=== PATIENT | female | born 1975 | race Caucasian/White ===

== ENCOUNTER → 2019-05-25 14:01 | Outpatient (CLI) | payer OTHER, SELFPAY ==
--- NOTE | 2019-05-25 | DI.US.S_ITS ---
PROCEDURE: US PELVIC COMPLETE INDICATIONS: RIGHT LOWER QUADRANT PAIN TECHNIQUE: Real-time scanning was performed of the pelvic organs, with image documentation. Additional endovaginal scanning was not performed at the patient's request. COMPARISON: None. FINDINGS: Transabdominal scanning: Limited scanning through the kidneys shows no hydronephrosis. No pathologic free abdominal or pelvic fluid. Endovaginal scanning: Uterus: Uterus is normal in size at 5.5 x 3.0 x 4.0 cm. The endometrium measures 3.5 mm in combined thickness. Ovaries: Normal ovaries bilaterally measuring 2.4 x 1.2 x 1.2 cm on the right and 2.5 x 1.4 x 1.5 cm in length. The appendix is not definitively identified. IMPRESSION: 1. No source for right lower quadrant pain identified and the appendix is not visualized and cannot be evaluated. If indicated, CT could be performed. Dictated by: Fan ROBLES Interpreted: Obde Julien MD on 05/25/2019 at 16:39 Approved by: Obed Julien M.D. on 05/25/2019 at 16:48
== END ==
PROVIDERS: Visit Provider Obstetrics & Gynecology
DX: R10.31 Right lower quadrant pain (principal)
CPT/HCPCS: 76856

== ENCOUNTER → 2020-11-11 09:00 | Outpatient (CLI) | payer OTHER, SELFPAY ==
[2020-11-11 19:24] LABS: Cholesterol 240 mg/dL (140-199); HDL Cholesterol 104 mg/dL (40-60); LDL Cholesterol Calculated 126 mg/dL (<100); Total Protein 6.7 g/dL (6.3-8.2); Triglycerides 51 mg/dL (35-150)
[2020-11-11 19:49] LABS: Free T4, Direct Thyroxine 0.85 ng/dL (0.78-2.19)
[2020-11-11 20:03] LABS: Thyroid Stimulating Hormone 1.07 uIU/mL (0.47-4.68)
[2020-11-13 05:37] LABS: Triiodothyronine T3 Total 69 ng/dL (71-180)
[2020-11-13 08:47] LABS: Homocysteine 6.9 umol/L (0.0-14.5); Immunoglobulin A 154 mg/dL (87-352)
== END ==
PROVIDERS: PCP Registered Nurse General Practice; Visit Provider Registered Nurse General Practice
DX: E03.9 Hypothyroidism, unspecified (principal)
CPT/HCPCS: 80061; 82239; 82784; 83090; 84155; 84439; 84443; 84480

== ENCOUNTER → 2021-01-16 10:15 | Outpatient (CLI) | payer OTHER, SELFPAY ==
[2021-01-16 20:31] LABS: Free T3, Triiodothyronine Free 2.55 pg/mL (2.77-5.27)
[2021-01-16 20:35] LABS: Progesterone, Total 0.83 ng/mL
[2021-01-16 20:36] LABS: Vitamin D 25 Hydroxy (D3) 32.9 ng/mL (30.0-100.0)
[2021-01-16 20:50] LABS: Estradiol, Total 181.4 pg/mL
[2021-01-16 21:04] LABS: Vitamin B12 440 pg/mL (239-931)
[2021-01-19 13:55] LABS: Zinc 86 ug/dL (44-115)
[2021-01-24 16:49] LABS: Estrogen 362 pg/mL (.)
== END ==
PROVIDERS: PCP Registered Nurse General Practice; Visit Provider Registered Nurse General Practice
DX: E55.9 Vitamin D deficiency, unspecified (principal); E03.9 Hypothyroidism, unspecified; E53.8 Deficiency of other specified B group vitamins; E60 Dietary zinc deficiency
CPT/HCPCS: 82306; 82607; 82670; 82672; 84144; 84481; 84630

== ENCOUNTER → 2021-05-25 09:29 | Outpatient (CLI) | payer OTHER, SELFPAY ==
[2021-05-25 19:14] LABS: Add Manual Diff / Slide Review NO; Basophils Absolute Auto 0 /uL (0-100); Basophils Percent Auto 1.2 % (0-2); Eosinophils Absolute Auto 100 /uL (0-450); Eosinophils Percent Auto 2.8 % (2-4); Hemoglobin 12.4 g/dL (12.0-16.0); Lymphocytes Absolute Auto 800 /uL (1100-4500); Lymphocytes Percent Auto 28.3 % (25-40); Mean Corpuscular HGB Conc 34.6 % (30-36); Mean Corpuscular Hemoglobin 32.9 PG (26-34); Mean Corpuscular Volume 95.1 fL (80-100); Monocytes Absolute Auto 300 /uL (0-900); Monocytes Percent Auto 9.2 % (3-14); Neutrophils Absolute Auto 1700 /uL (1500-7000); Neutrophils Percent Auto 58.5 % (50-75); Platelet Count 176 X10^3/uL (150-400); Red Blood Cell Count 3.79 X10^6/uL (4.0-5.2); Red Cell Distribution Width 12.6 % (11.6-14.8); White Blood Cell Count 2.9 X10^3/uL (4.5-11.0)
[2021-05-25 19:50] LABS: Alanine Aminotransferase 25 IU/L (<35); Albumin 4.5 g/dL (3.5-5.0); Albumin Globulin Ratio 1.8 (1.0-2.8); Alkaline Phosphatase 51 U/L (38-126); Aspartate Aminotransferase 31 IU/L (14-36); BUN Creatinine Ratio 17.8 (6-22); Bilirubin Total 0.7 mg/dL (0.2-1.3); Blood Urea Nitrogen 16 mg/dL (7-17); Calcium 9.5 mg/dL (8.4-10.2); Carbon Dioxide 28 mmol/L (22-32); Chloride 103 mmol/L (98-107); Estimated Glomerular Filt Rate > 60.0 mL/min (>60); Gamma Glutamyl Transpeptidase 20 U/L (12-43); Globulin 2.5 g/dL (1.7-4.1); Glucose 81 mg/dL (70-100); HEMOLYSIS < 15 (0-50); Potassium 4.2 mmol/L (3.4-5.1); Sodium 138 mmol/L (137-145)
[2021-05-25 19:55] LABS: High Sensitivity CRP - Cardiac < 0.3 mg/L (1.0-3.0)
[2021-05-25 20:05] LABS: Progesterone, Total 1.26 ng/mL
[2021-05-25 20:21] LABS: Estradiol, Total 83.2 pg/mL; Iron 90 ug/dL (37-170)
[2021-05-25 20:26] LABS: Cortisol AM (Before 10AM) 10.3 ug/dL (4.46-22.7)
[2021-05-25 20:30] LABS: Ferritin 14 ng/mL (6-137); Percent Iron Saturation 28 % (15-50); Testosterone 27.6 ng/dL (5.71-77.0); Total Iron Binding Capacity 321 ug/dL (265-497)
[2021-05-25 20:39] LABS: Free T3, Triiodothyronine Free 2.95 pg/mL (2.77-5.27); Free T4, Direct Thyroxine 0.88 ng/dL (0.78-2.19)
[2021-05-25 20:52] LABS: Thyroid Stimulating Hormone 0.545 uIU/mL (0.47-4.68)
[2021-05-25 21:02] LABS: Folate > 20.0 ng/mL (2.76-20.0); Vitamin B12 404 pg/mL (239-931)
[2021-05-25 22:07] LABS: Hep C Virus Ab w/Reflex Quant NEGATIVE s/c (NEGATIVE)
[2021-05-29 12:12] LABS: Cholesterol, Total 228 mg/dL (100-199); HDL-Cholesterol 104 mg/dL (>39); HDL-Particle (Total) 40.4 umol/L (>=30.5); LDL Particle 1061 nmol/L (<1000); LDL Size 21.8 nm (>20.5); LDL-Cholsterol 115 mg/dL (0-99); LP-IR Score <25 (<=45); Small LDL- Particle <90 nmol/L (<=527); Triglycerides 51 mg/dL (0-149)
== END ==
PROVIDERS: PCP Registered Nurse General Practice
DX: R19.7 Diarrhea, unspecified (principal); R53.83 Other fatigue; N95.1 Menopausal and female climacteric states; G47.00 Insomnia, unspecified
CPT/HCPCS: 80053; 80061; 82533; 82607; 82627; 82670; 82728; 82746; 82977; 83036; 83540; 83550; 83704; 84144; 84403; 84439; 84443; 84481; 85025; 86140; 86803

== ENCOUNTER → 2021-08-18 10:34 | Outpatient (CLI) | payer OTHER, SELFPAY ==
--- NOTE | 2021-08-18 11:22 | DI.CT.S_ITS ---
PROCEDURE: CT ABDOMEN PELVIS W CON INDICATIONS: Right lower quadrant pain TECHNIQUE: After the administration of oral and intravenous contrast, axial sections were acquired from the lung bases to the pubic symphysis. Coronal and sagittal reformats were performed. For radiation dose reduction, the following was used: automated exposure control, adjustment of mA and/or kV according to patient size. COMPARISON:None. FINDINGS: Image quality: Excellent. Lung bases: Unremarkable. Heart: No significant findings. ABDOMEN: Liver: Unremarkable. Gallbladder: Unremarkable. Biliary ducts: Unremarkable. Pancreas: Unremarkable. Spleen: Unremarkable. Adrenal Glands: Unremarkable. Kidneys and Ureters: Unremarkable. Stomach and Bowel: Large fecal load. Stomach, small bowel loops, and colon are otherwise unremarkable. Peritoneum: No abnormal intraperitoneal fluid. No free air. Ventral Wall: No hernia. Abdominal Nodes: No retroperitoneal or mesenteric adenopathy by size criteria. Vessels: Aorta and inferior vena cava are normal in size. PELVIS: Pelvic Organs: Unremarkable. Bladder: Unremarkable. Pelvic Nodes: No enlarged lymph nodes. Miscellaneous: No inguinal hernias are seen. Bones: Unremarkable. IMPRESSION: 1. Large fecal load. 2. Otherwise unremarkable CT scan of the abdomen and pelvis with contrast. No evidence of acute abdominal process. Dictated by: Stanislaw Lewis M.D. on 08/18/2021 at 17:06 Approved by: Stanislaw Lewis M.D. on 08/18/2021 at 17:09
== END ==
PROVIDERS: PCP Registered Nurse General Practice; Referring Provider Nurse Practitioner Family; Visit Provider Nurse Practitioner Family
DX: R10.31 Right lower quadrant pain (principal)
CPT/HCPCS: 74177

== ENCOUNTER → 2021-09-29 11:23 | Outpatient (CLI) | payer OTHER, SELFPAY ==
[2021-09-29 18:52] LABS: Add Manual Diff / Slide Review NO; Basophils Absolute Auto 100 /uL (0-100); Basophils Percent Auto 1.2 % (0-2); Eosinophils Absolute Auto 200 /uL (0-450); Eosinophils Percent Auto 3.1 % (2-4); Hematocrit 38.4 % (36-46); Hemoglobin 13.5 g/dL (12.0-16.0); Lymphocytes Absolute Auto 1000 /uL (1100-4500); Lymphocytes Percent Auto 20.5 % (25-40); Mean Corpuscular HGB Conc 35.1 % (30-36); Mean Corpuscular Hemoglobin 32.9 PG (26-34); Mean Corpuscular Volume 93.9 fL (80-100); Monocytes Absolute Auto 400 /uL (0-900); Monocytes Percent Auto 8.2 % (3-14); Neutrophils Absolute Auto 3200 /uL (1500-7000); Platelet Count 212 X10^3/uL (150-400); Red Blood Cell Count 4.09 X10^6/uL (4.0-5.2); Red Cell Distribution Width 12.9 % (11.6-14.8); White Blood Cell Count 4.8 X10^3/uL (4.5-11.0)
[2021-09-29 19:37] LABS: Ferritin 18 ng/mL (6-137)
== END ==
PROVIDERS: PCP Registered Nurse General Practice; Visit Provider Naturopath
DX: D50.9 Iron deficiency anemia, unspecified (principal)
CPT/HCPCS: 82728; 85025

== ENCOUNTER → 2021-12-29 10:55 | Outpatient (CLI) | payer OTHER, SELFPAY ==
[2021-12-29 20:01] LABS: Add Manual Diff / Slide Review NO; Basophils Absolute Auto 100 /uL (0-100); Basophils Percent Auto 1.4 % (0-2); Eosinophils Absolute Auto 300 /uL (0-450); Eosinophils Percent Auto 5.4 % (2-4); Hematocrit 38.2 % (36-46); Hemoglobin 13.2 g/dL (12.0-16.0); Lymphocytes Absolute Auto 1200 /uL (1100-4500); Lymphocytes Percent Auto 24.9 % (25-40); Mean Corpuscular HGB Conc 34.5 % (30-36); Mean Corpuscular Hemoglobin 32.6 PG (26-34); Mean Corpuscular Volume 94.5 fL (80-100); Monocytes Absolute Auto 500 /uL (0-900); Monocytes Percent Auto 9.4 % (3-14); Neutrophils Absolute Auto 2800 /uL (1500-7000); Neutrophils Percent Auto 58.9 % (50-75); Platelet Count 197 X10^3/uL (150-400); Red Blood Cell Count 4.04 X10^6/uL (4.0-5.2); Red Cell Distribution Width 13.5 % (11.6-14.8); White Blood Cell Count 4.8 X10^3/uL (4.5-11.0)
[2021-12-29 20:42] LABS: Ferritin 40 ng/mL (6-137)
== END ==
PROVIDERS: PCP Registered Nurse General Practice
DX: D50.9 Iron deficiency anemia, unspecified (principal)
CPT/HCPCS: 82728; 85025

== ENCOUNTER → 2022-05-13 09:45 | Outpatient (CLI) | payer OTHER, SELFPAY ==
[2022-05-13 18:25] LABS: Add Manual Diff / Slide Review NO; Basophils Absolute Auto 100 /uL (0-100); Basophils Percent Auto 1.7 % (0-2); Eosinophils Absolute Auto 100 /uL (0-450); Eosinophils Percent Auto 2.8 % (2-4); Hematocrit 39.3 % (36-46); Hemoglobin 13.3 g/dL (12.0-16.0); Lymphocytes Absolute Auto 1000 /uL (1100-4500); Lymphocytes Percent Auto 27.6 % (25-40); Mean Corpuscular HGB Conc 33.8 % (30-36); Mean Corpuscular Hemoglobin 32.4 PG (26-34); Monocytes Absolute Auto 300 /uL (0-900); Monocytes Percent Auto 7.8 % (3-14); Neutrophils Absolute Auto 2100 /uL (1500-7000); Neutrophils Percent Auto 60.1 % (50-75); Platelet Count 175 X10^3/uL (150-400); Red Blood Cell Count 4.09 X10^6/uL (4.0-5.2); Red Cell Distribution Width 13.1 % (11.6-14.8); White Blood Cell Count 3.5 X10^3/uL (4.5-11.0)
[2022-05-13 18:29] LABS: HEMOLYSIS < 15 (0-50); Iron 101 ug/dL (37-170)
[2022-05-13 18:31] LABS: Alanine Aminotransferase 29 IU/L (<35); Albumin 4.5 g/dL (3.5-5.0); Albumin Globulin Ratio 1.8 (1.0-2.8); Alkaline Phosphatase 60 U/L (38-126); Aspartate Aminotransferase 34 IU/L (14-36); BUN Creatinine Ratio 26.4 (6-22); Bilirubin Total 0.8 mg/dL (0.2-1.3); Blood Urea Nitrogen 19 mg/dL (7-17); Calcium 9.5 mg/dL (8.4-10.2); Carbon Dioxide 26 mmol/L (22-32); Chloride 103 mmol/L (98-107); Estimated Glomerular Filt Rate > 60 mL/min (>60); Globulin 2.5 g/dL (1.7-4.1); Glucose 74 mg/dL (70-100); HEMOLYSIS 22 (0-50); Hemoglobin A1C% w Est Avg Glu 5.3 % (4.0-6.0); Potassium 4.3 mmol/L (3.4-5.1); Sodium 138 mmol/L (137-145)
[2022-05-13 18:43] LABS: Percent Iron Saturation 34 % (15-50); Total Iron Binding Capacity 297 ug/dL (265-497); Transferrin 258 mg/dL (206-381)
[2022-05-13 18:49] LABS: Free T4, Direct Thyroxine 0.89 ng/dL (0.78-2.19)
[2022-05-13 18:59] LABS: Cortisol AM (Before 10AM) 10.3 ug/dL (4.46-22.7)
[2022-05-13 19:02] LABS: Thyroid Stimulating Hormone 0.865 uIU/mL (0.47-4.68)
[2022-05-13 19:03] LABS: Ferritin 33 ng/mL (6-137)
[2022-05-13 19:34] LABS: Folate > 20.0 ng/mL (2.76-20.0); Vitamin B12 427 pg/mL (239-931)
== END ==
PROVIDERS: PCP Registered Nurse General Practice; Visit Provider Naturopath
DX: D50.9 Iron deficiency anemia, unspecified (principal); G47.00 Insomnia, unspecified; K59.00 Constipation, unspecified; R14.0 Abdominal distension (gaseous); R53.83 Other fatigue
CPT/HCPCS: 80053; 82533; 82607; 82627; 82728; 82746; 83036; 83540; 83550; 84439; 84443; 84481; 85025

== ENCOUNTER → 2022-08-26 13:30 | Outpatient (CLI) | payer OTHER, SELFPAY | PROVIDERS: PCP Registered Nurse General Practice; Visit Provider Naturopath | DX: R53.83 Other fatigue (principal) | CPT/HCPCS: 86644; 86645; 86664; 86665 ==

== ENCOUNTER → 2023-02-16 11:53 | Outpatient (CLI) | payer OTHER, SELFPAY ==
[2023-02-16 19:09] LABS: Add Manual Diff / Slide Review NO; Basophils Absolute Auto 100 /uL (0-100); Basophils Percent Auto 2.1 % (0-2); Eosinophils Absolute Auto 100 /uL (0-450); Eosinophils Percent Auto 3.2 % (2-4); Hematocrit 39.6 % (36-46); Hemoglobin 13.4 g/dL (12.0-16.0); Lymphocytes Absolute Auto 900 /uL (1100-4500); Lymphocytes Percent Auto 25.3 % (25-40); Mean Corpuscular HGB Conc 33.9 % (30-36); Mean Corpuscular Hemoglobin 32.7 PG (26-34); Mean Corpuscular Volume 96.4 fL (80-100); Monocytes Absolute Auto 300 /uL (0-900); Monocytes Percent Auto 9.1 % (3-14); Neutrophils Absolute Auto 2200 /uL (1500-7000); Neutrophils Percent Auto 60.3 % (50-75); Platelet Count 178 X10^3/uL (150-400); Red Blood Cell Count 4.11 X10^6/uL (4.0-5.2); Red Cell Distribution Width 13.5 % (11.6-14.8); White Blood Cell Count 3.6 X10^3/uL (4.5-11.0)
[2023-02-16 19:14] LABS: HEMOLYSIS 15 (0-50); Iron 60 ug/dL (37-170)
[2023-02-16 19:24] LABS: Transferrin 222 mg/dL (206-381)
[2023-02-16 19:29] LABS: Percent Iron Saturation 20 % (15-50); Total Iron Binding Capacity 295 ug/dL (265-497)
[2023-02-16 19:33] LABS: Follicle Stimulating Hormone 13.4 mIU/mL; Progesterone, Total 0.96 ng/mL
[2023-02-16 19:49] LABS: Estradiol, Total 52.8 pg/mL
[2023-02-16 19:51] LABS: Ferritin 27 ng/mL (6-137); Testosterone 21.2 ng/dL (5.71-77.0)
== END ==
PROVIDERS: PCP Registered Nurse General Practice; Visit Provider Naturopath
DX: D50.9 Iron deficiency anemia, unspecified (principal); G31.84 Mild cognitive impairment of uncertain or unknown etiology; N95.1 Menopausal and female climacteric states; R53.83 Other fatigue
CPT/HCPCS: 82670; 82728; 83001; 83540; 83550; 84144; 84403; 85025

== ENCOUNTER → 2023-07-06 09:06 | Outpatient (CLI) | payer OTHER, SELFPAY ==
[2023-07-06 20:29] LABS: Add Manual Diff / Slide Review NO; Basophils Absolute Auto 100 /uL (0-100); Basophils Percent Auto 3.1 % (0-2); Eosinophils Absolute Auto 100 /uL (0-450); Eosinophils Percent Auto 4.8 % (2-4); Hemoglobin 14.3 g/dL (12.0-16.0); Lymphocytes Absolute Auto 800 /uL (1100-4500); Lymphocytes Percent Auto 30.7 % (25-40); Mean Corpuscular Hemoglobin 32.5 PG (26-34); Mean Corpuscular Volume 95.7 fL (80-100); Monocytes Absolute Auto 200 /uL (0-900); Monocytes Percent Auto 7.8 % (3-14); Neutrophils Absolute Auto 1300 /uL (1500-7000); Neutrophils Percent Auto 53.6 % (50-75); Platelet Count 194 X10^3/uL (150-400); Red Blood Cell Count 4.39 X10^6/uL (4.0-5.2); Red Cell Distribution Width 13.2 % (11.6-14.8); White Blood Cell Count 2.5 X10^3/uL (4.5-11.0)
[2023-07-06 20:34] LABS: Alanine Aminotransferase 38 IU/L (<35); Albumin 4.8 g/dL (3.5-5.0); Albumin Globulin Ratio 1.6 (1.0-2.8); Alkaline Phosphatase 66 U/L (38-126); Aspartate Aminotransferase 40 IU/L (14-36); BUN Creatinine Ratio 21.7 (6-22); Bilirubin Total 1.1 mg/dL (0.2-1.3); Blood Urea Nitrogen 18 mg/dL (7-17); Calcium 9.8 mg/dL (8.4-10.2); Carbon Dioxide 27 mmol/L (22-32); Chloride 102 mmol/L (98-107); Cholesterol 256 mg/dL (140-199); Estimated Glomerular Filt Rate > 60 mL/min (>60); Glucose 84 mg/dL (70-100); HDL Cholesterol 108 mg/dL (40-60); HEMOLYSIS < 15 (0-50); LDL Cholesterol Calculated 137 mg/dL (<100); Potassium 4.3 mmol/L (3.4-5.1); Sodium 139 mmol/L (137-145); Total Protein 7.8 g/dL (6.3-8.2); Triglycerides 54 mg/dL (35-150)
[2023-07-06 20:38] LABS: High Sensitivity CRP - Cardiac < 0.3 mg/L (1.0-3.0)
[2023-07-06 20:49] LABS: Follicle Stimulating Hormone 4.29 mIU/mL
[2023-07-06 20:50] LABS: Free T3, Triiodothyronine Free 2.32 pg/mL (2.77-5.27); Free T4, Direct Thyroxine 0.76 ng/dL (0.78-2.19); Vitamin D 25 Hydroxy (D3) 56.5 ng/mL (30.0-100.0)
[2023-07-06 20:53] LABS: Hemoglobin A1C% w Est Avg Glu 5.3 % (4.0-6.0)
[2023-07-06 21:04] LABS: Thyroid Stimulating Hormone 0.591 uIU/mL (0.47-4.68)
[2023-07-06 21:09] LABS: Ferritin 51 ng/mL (6-137)
[2023-07-06 21:41] LABS: Folate > 20.0 ng/mL (2.76-20.0); Vitamin B12 405 pg/mL (239-931)
[2023-07-07 19:56] LABS: Hep C Virus Ab w/Reflex Quant NEGATIVE s/c (NEGATIVE)
[2023-07-12 03:10] LABS: Lipoprotein (a) 195.5 nmol/L (<75.0)
== END ==
PROVIDERS: PCP Naturopath; Visit Provider Naturopath
DX: N95.1 Menopausal and female climacteric states (principal); N92.6 Irregular menstruation, unspecified; D72.819 Decreased white blood cell count, unspecified; E55.9 Vitamin D deficiency, unspecified; F43.21 Adjustment disorder with depressed mood; R45.4 Irritability and anger; E78.5 Hyperlipidemia, unspecified; Z86.59 Personal history of other mental and behavioral disorders
CPT/HCPCS: 80053; 80061; 82306; 82607; 82728; 82746; 83001; 83036; 83695; 84439; 84443; 84481; 85025; 86140; 86803

== ENCOUNTER → 2023-08-17 14:25 | Outpatient (CLI) | payer OTHER, SELFPAY ==
[2023-08-18 19:58] LABS: HIV 1 & 2 Ab/Ag 4th Gen Combo NEGATIVE (NEGATIVE)
== END ==
PROVIDERS: PCP Naturopath; Visit Provider Naturopath
DX: R53.83 Other fatigue (principal); D72.819 Decreased white blood cell count, unspecified
CPT/HCPCS: 87389

== ENCOUNTER → 2024-02-07 14:42 | Outpatient (CLI) | payer OTHER, SELFPAY ==
[2024-02-07 20:19] LABS: Add Manual Diff / Slide Review NO; Basophils Absolute Auto 100 /uL (0-100); Basophils Percent Auto 1.4 % (0-2); Eosinophils Absolute Auto 200 /uL (0-450); Eosinophils Percent Auto 3.4 % (2-4); Hematocrit 38.4 % (36-46); Hemoglobin 13.1 g/dL (12.0-16.0); Lymphocytes Absolute Auto 800 /uL (1100-4500); Monocytes Absolute Auto 500 /uL (0-900); Monocytes Percent Auto 8.7 % (3-14); Neutrophils Absolute Auto 4000 /uL (1500-7000); Neutrophils Percent Auto 71.5 % (50-75); Platelet Count 181 X10^3/uL (150-400); Red Blood Cell Count 3.96 X10^6/uL (4.0-5.2); Red Cell Distribution Width 12.9 % (11.6-14.8); White Blood Cell Count 5.6 X10^3/uL (4.5-11.0)
[2024-02-07 20:43] LABS: Follicle Stimulating Hormone 2.94 mIU/mL; Luteinizing Hormone 0.922 mIU/mL
[2024-02-07 20:45] LABS: Free T3, Triiodothyronine Free 2.88 pg/mL (2.77-5.27); Free T4, Direct Thyroxine 0.71 ng/dL (0.78-2.19)
[2024-02-07 20:57] LABS: Cortisol Random 4.83 ug/dL
[2024-02-07 20:59] LABS: Thyroid Stimulating Hormone 0.619 uIU/mL (0.47-4.68)
[2024-02-14 08:11] LABS: Estradiol, Sensitive 67.1 pg/mL (.)
[2024-02-14 11:11] LABS: Percent Free Testosterone 1.41 % (0.50-2.80); Testosterone Free 0.16 ng/dL (0.10-0.85); Testosterone Total 11.6 ng/dL (.)
== END ==
PROVIDERS: PCP Naturopath; Visit Provider Naturopath
DX: Z01.419 Encounter for gynecological examination (general) (routine) without abnormal findings (principal); Z11.51 Encounter for screening for human papillomavirus (HPV); M81.0 Age-related osteoporosis without current pathological fracture; R14.0 Abdominal distension (gaseous); M85.80 Other specified disorders of bone density and structure, unspecified site; F32.A Depression, unspecified; N95.9 Unspecified menopausal and perimenopausal disorder; R00.2 Palpitations; R53.83 Other fatigue; N92.6 Irregular menstruation, unspecified; D72.819 Decreased white blood cell count, unspecified; Z86.59 Personal history of other mental and behavioral disorders
CPT/HCPCS: 82533; 82627; 82670; 83001; 83002; 84402; 84403; 84439; 84443; 84481; 85025

== ENCOUNTER → 2024-03-19 11:25 | Outpatient (CLI) | payer OTHER, SELFPAY ==
--- NOTE | 2024-03-19 | DI.US.S_ITS ---
PROCEDURE: US ABDOMEN LIMITED INDICATIONS: ELEV LIVER ENZYMES TECHNIQUE: Real-time focused scanning was performed of the abdomen, with image documentation. COMPARISON: [facility], CT, CT ABDOMEN PELVIS W CON, 08/18/2021, 11:34. [facility], US, ABDOMEN COMPLETE, 03/01/2014, 11:02. FINDINGS: The liver is normal in size and demonstrates no suspicious lesions. The liver echogenicity is within normal limits. No findings of gallstones or sludge are seen. The gallbladder wall is not thickened, measuring 3 mm or less. No specific pericholecystic fluid is seen. The sonographic Sanchez sign is negative. There is no biliary dilatation, the common bile duct measures 5 mm. No significant pancreatic abnormality is seen on these images. IMPRESSION: No significant liver abnormality by ultrasound. Dictated by: Kostas Torres M.D. on 03/19/2024 at 14:45 Approved by: Kostas Torres M.D. on 03/19/2024 at 14:45
== END ==
PROVIDERS: PCP Naturopath; Referring Provider Naturopath; Visit Provider Naturopath
DX: R74.8 Abnormal levels of other serum enzymes (principal)
CPT/HCPCS: 76705

== ENCOUNTER → 2024-06-01 12:22 | Outpatient (CLI) | payer OTHER, SELFPAY ==
[2024-06-01 19:57] LABS: Alanine Aminotransferase 36 IU/L (<35); Albumin 3.9 g/dL (3.5-5.0); Albumin Globulin Ratio 1.6 (1.0-2.8); Alkaline Phosphatase 76 U/L (38-126); Aspartate Aminotransferase 35 IU/L (14-36); Bilirubin Total 0.4 mg/dL (0.2-1.3); Bilirubin Unconjugated 0.2 mg/dL (0.0-1.1); Globulin 2.4 g/dL (1.7-4.1); HEMOLYSIS < 15 (0-50); Total Protein 6.3 g/dL (6.3-8.2)
== END ==
PROVIDERS: PCP Naturopath; Visit Provider Naturopath
DX: R74.8 Abnormal levels of other serum enzymes (principal)
CPT/HCPCS: 80076

== ENCOUNTER → 2024-08-15 11:00 | Outpatient (CLI) | payer OTHER, SELFPAY ==
[2024-08-15 19:33] LABS: HEMOLYSIS < 15 (0-50); Iron 109 ug/dL (37-170)
[2024-08-15 19:46] LABS: Percent Iron Saturation 49 % (15-50); Total Iron Binding Capacity 224 ug/dL (265-497); Transferrin 182 mg/dL (206-381)
[2024-08-15 20:05] LABS: Thyroid Stimulating Hormone 0.444 uIU/mL (0.47-4.68)
[2024-08-15 20:11] LABS: Ferritin 63 ng/mL (6-137)
[2024-08-15 20:41] LABS: Folate 11.5 ng/mL (2.76-20.0); Vitamin B12 347 pg/mL (239-931)
[2024-08-17 07:09] LABS: Thyroid Peroxidase Antibodies 14 IU/mL (0-34)
[2024-08-18 18:15] LABS: Anti Thyroglobulin Antibody <1.0 IU/mL (0.0-0.9)
[2024-08-31 12:40] LABS: Alpha-Tocopherol 19.1 mg/L (7.0-25.1)
== END ==
PROVIDERS: PCP Naturopath; Visit Provider Naturopath
DX: Z01.419 Encounter for gynecological examination (general) (routine) without abnormal findings (principal); M81.0 Age-related osteoporosis without current pathological fracture; R14.0 Abdominal distension (gaseous); M85.80 Other specified disorders of bone density and structure, unspecified site; R14.3 Flatulence; F32.A Depression, unspecified; N95.9 Unspecified menopausal and perimenopausal disorder; R00.2 Palpitations; R19.7 Diarrhea, unspecified; R53.83 Other fatigue; R74.8 Abnormal levels of other serum enzymes; N92.6 Irregular menstruation, unspecified; Z86.59 Personal history of other mental and behavioral disorders; D72.819 Decreased white blood cell count, unspecified
CPT/HCPCS: 82542; 82607; 82728; 82746; 83540; 83550; 84439; 84443; 84446; 84481; 86376; 86800

== ENCOUNTER → 2024-09-25 09:50 | Outpatient (CLI) | payer OTHER, SELFPAY ==
[2024-09-28 12:40] LABS: Zinc 70 ug/dL (44-115)
[2024-09-28 13:11] LABS: Selenium 141 ug/L (93-198)
[2024-10-01 23:36] LABS: Triiodothyronine T3 Reverse 14.4 ng/dL (.)
[2024-10-03 00:36] LABS: Alpha-Tocopherol 19.4 mg/L (7.0-25.1); Gamma-Tocopherol 1.1 mg/L (0.5-5.5)
== END ==
PROVIDERS: PCP Naturopath; Visit Provider Naturopath
DX: Z01.419 Encounter for gynecological examination (general) (routine) without abnormal findings (principal); M81.0 Age-related osteoporosis without current pathological fracture; R14.0 Abdominal distension (gaseous); M85.80 Other specified disorders of bone density and structure, unspecified site; R14.3 Flatulence; N95.9 Unspecified menopausal and perimenopausal disorder; R00.2 Palpitations; R19.7 Diarrhea, unspecified; R53.83 Other fatigue; R74.8 Abnormal levels of other serum enzymes; N92.6 Irregular menstruation, unspecified; D72.819 Decreased white blood cell count, unspecified; Z86.59 Personal history of other mental and behavioral disorders
CPT/HCPCS: 82542; 84255; 84446; 84482; 84630